=== PATIENT | male | born 1985 | race African-American/Black ===

== ENCOUNTER 2024-11-07 17:00 | Emergency (ER) | payer OTHER ==
[~2024-11-07] VITALS: Ht 172.7 cm; Wt 63.5 kg
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
[2024-11-07 17:54] LABS: HEMATOCRIT 37.3 % (42-54); MEAN CORPUSCULAR HEMOGLOBIN 27.8 pg (27.0-33.0); MEAN CORPUSCULAR HGB CONC 32.4 g/dL (32.0-36.0); MEAN CORPUSCULAR VOLUME 85.7 fL (79-99); RED BLOOD CELL COUNT(AUTO) 4.35 MIL/uL (4.50-6.20); RED CELL DISTRIBUTION WIDTH 13.2 % (11.0-15.5); WHITE BLOOD COUNT (AUTO) 11.2 K/uL (4.8-10.8)
[2024-11-07 18:05] LABS: POTASSIUM 4.1 mmol/L (3.5-5.1)
--- NOTE | 2024-11-07 18:05 | NUR ---
TRANSFER REQUEST FOR MAXILLOFACIAL SERVICE BY [facility]. YURIDIA FOX
[2024-11-07 18:08] LABS: INR 0.97 (0.85-1.15); PROTHROMBIN TIME 10.9 SEC (9.6-11.6)
[2024-11-07 18:09] LABS: PARTIAL THROMBOPLASTIN TIME 24.8 SEC (26.3-35.5)
--- NOTE | 2024-11-07 18:45 | NUR ---
TRANSFER CALL PLACE TO [facility] [phone] SPOKE TO RACH INTAKE NURSE INFORMATION PROVIDED. PT DECLINED FOR CAPACITY. YURIDIA FOX
[2024-11-07] MEDS: ketOROlac 30MG VIAL (30MG/ML) IVP ONE (19:08)
[2024-11-07] MEDS: CLINDAMYCIN IVPB 600MG/50ML 50 ML IV SCH (19:08)
--- NOTE | 2024-11-07 19:10 | NUR ---
transfer call back with accepted pt will call back. robbie messina
--- NOTE | 2024-11-07 19:15 | NUR ---
transfer call back with acceptance to [facility] [address] [facility] [address], room [address] shaniqua mendoza transfer intake nurse will call er for report. robbie messina
--- NOTE | 2024-11-07 19:52 | NUR ---
REPORT GIVEN TO NURSE SMITH.PATIENT TO BE TRANSFERRED TO [facility],[id number].[facility] ARRANGING TRANSPORT,WILL CALL BACK WITH ASTRID.
[2024-11-07] MEDS: 0.9%NACL 1000ML 1,000 ML IV SCH (20:19)
[2024-11-08 02:23] VITALS: BP 120/76; PULSE 76; RESP 20; TEMP 98.4; O2SAT 100
[2024-11-08] MEDS: ketOROlac 30MG VIAL (30MG/ML) IVP ONE (02:34)
--- NOTE | 2024-11-08 02:42 | NUR ---
EMS ARRIVED FOR PATIENT AT THIS TIME, PATIENT IS COMFORTABLE, ALL VS WNL
== END 2024-11-08 02:45 | disposition short-term general hospital (02) ==
LOC: EEVIPCON 17:00 → EDH 17:00
DX: S02.651A Fracture of angle of right mandible, initial encounter for closed fracture (principal); S00.83XA Contusion of other part of head, initial encounter; T74.21XA Adult sexual abuse, confirmed, initial encounter; Y08.89XA Assault by other specified means, initial encounter
CPT/HCPCS: 99285; 70450; 96365; 96375; 80048; 85027; 85610; 85730; 36415; 70486; 96376; J1885 ×2; J3490 ×2